=== PATIENT | male | born 1965 | race American Indian/Alaskan Native ===

== ENCOUNTER 2019-01-25 23:27 | Emergency (ER) | payer BC, OTHER ==
[2019-01-25 23:33] VITALS: BP 158/113
[2019-01-26] MEDS ORDERED: BSS OU ONE (01:11)
[2019-01-26] MEDS ORDERED: FUL-GLO OP ONE (01:11)
[2019-01-26] MEDS ORDERED: TETRACAINE 0.5% OU ONE (01:11)
--- NOTE | 2019-01-26 01:19 | Emergency Department Report ---
ED Eye Problem HPI - General Chief complaint: Eye Problems Stated complaint: GOT CHEMICAL IN RIGHT EYE Time Seen by Provider: 01/26/19 01:10 Source: patient Mode of arrival: Ambulatory Limitations: No Limitations - History of Present Illness Initial comments: 53-year-old -[place] male presents to the emergency room complaining of right thigh pain for 1-1/2 hours prior to arrival. Patient reports that he got Noxzema to his right eye. Patient states that his vision was blurred. Patient does report he flushed his eye out while in the shower. chief complaint: eye pain Onset/Timin -: hour(s) Location: right eye Place: home Eye Symptoms: burning, pain, foreign body sensation, blurry vision Severity scale (0 -10): 3 If Pain, Quality: burning Treatments Prior to Arrival: irrigated eye - Related Data Previous Rx's Medication Instructions Recorded Last Taken Type Lisinopril/Hydrochlorothiazide 1 tab PO QDAY #90 tablet 01/02/14 Unknown Rx [Zestoretic 10-12.5 mg] Cyclobenzaprine [Flexeril] 10 mg PO TID PRN #30 tablet 07/08/15 Unknown Rx HYDROcodone/APAP 5-325 [[place] 1 each PO Q6HR PRN #20 tablet 07/08/15 Unknown Rx 5/325] Ibuprofen [Motrin] 600 mg PO Q8H PRN #40 tablet 07/08/15 Unknown Rx Erythromycin [Erythromycin Ophth 1 applic OP QID #1 tube 01/26/19 Unknown Rx Oint] Ibuprofen [Motrin 800 MG tab] 800 mg PO Q8HR PRN #30 tablet 01/26/19 Unknown Rx Allergies Allergy/AdvReac Type Severity Reaction Status Date / Time No Known Allergies Allergy Verified 01/02/14 21:41 ED Review of Systems ROS: Stated complaint: GOT CHEMICAL IN RIGHT EYE Other details as noted in HPI Comment: All other systems reviewed and negative Eyes: eye pain ED Past Medical Hx - Past Medical History Previous Medical History?: Yes Hx Hypertension: Yes Hx Asthma: Yes - Surgical History Past Surgical History?: No - Social History Smoking Status: Never Smoker Substance Use Type: None - Medications Home Medications: Home Medications Medication Instructions Recorded Confirmed Last Taken Type Lisinopril/Hydrochlorothiazide 1 tab PO QDAY #90 tablet 01/02/14 Unknown Rx [Zestoretic 10-12.5 mg] Cyclobenzaprine [Flexeril] 10 mg PO TID PRN #30 tablet 07/08/15 Unknown Rx HYDROcodone/APAP 5-325 [[place] 1 each PO Q6HR PRN #20 tablet 07/08/15 Unknown Rx 5/325] Ibuprofen [Motrin] 600 mg PO Q8H PRN #40 tablet 07/08/15 Unknown Rx Erythromycin [Erythromycin Ophth 1 applic OP QID #1 tube 01/26/19 Unknown Rx Oint] Ibuprofen [Motrin 800 MG tab] 800 mg PO Q8HR PRN #30 tablet 01/26/19 Unknown Rx ED Physical Exam - General Limitations: No Limitations General appearance: alert, in no apparent distress - Head Head exam: Present: atraumatic, normocephalic - Eye Eye exam: Present: PERRL, other. Absent: periorbital swelling, periorbital tenderness - Expanded Eye Exam Expanded Pupils: Regular, Round: Bilateral Sclera/Conjunctival: Injection: Right - ENT ENT exam: Present: mucous membranes moist - Neurological Exam Neurological exam: Present: alert, oriented X3, normal gait - Psychiatric Psychiatric exam: Present: normal affect, normal mood - Skin Skin exam: Present: warm, dry, intact, normal color. Absent: rash ED Course Vital Signs 01/25/19 01/25/19 23:31 23:34 Temperature 98.5 F Pulse Rate 93 H Respiratory 18 Rate Blood Pressure 158/113 O2 Sat by Pulse 92 96 Oximetry ED Medical Decision Making - Medical Decision Making 53-year-old -[place] male presents to the emergency room complaining of right thigh pain for 1-1/2 hours prior to arrival. Patient reports that he got Noxzema to his right eye. Patient states that his vision was blurred. Patient does report he flushed his eye out while in the shower. Critical care attestation.: If time is entered above; I have spent that time in minutes in the direct care of this critically ill patient, excluding procedure time. ED Disposition Clinical Impression: Cornea abrasion Qualifiers: Encounter type: initial encounter Laterality: right Qualified Code(s): S05.01XA - Injury of conjunctiva and corneal abrasion without foreign body, right eye, initial encounter Disposition: TO HOME OR SELFCARE Is pt being admited?: No Does the pt Need Aspirin: No Condition: Stable Instructions: Corneal Abrasion (ED) Additional Instructions: Please use eye medication/antibiotics as prescribed. Take pain medication as needed. Is very important for you to do a 24-hour follow-up with an glycerine plant operator I have listed one below named Dr. Coe. Prescriptions: Erythromycin [Erythromycin Ophth Oint] 1 applic OP QID #1 tube Ibuprofen [Motrin 800 MG tab] 800 mg PO Q8HR PRN #30 tablet PRN Reason: Pain , Severe (7-10) Referrals: ALYSSA COE MD [Staff Physician] - 3-5 Days CRIO JONES JR, MD [Staff Physician] - 3-5 Days Forms: Work/School Release Form(ED), Accompanied Note
== END 2019-01-26 02:03 | disposition home or self-care (01) ==
LOC: ED 23:27
DX: S05.01XA Injury of conjunctiva and corneal abrasion without foreign body, right eye, initial encounter (principal); M79.651 Pain in right thigh; I10 Essential (primary) hypertension; J45.909 Unspecified asthma, uncomplicated; Z79.1 Long term (current) use of non-steroidal anti-inflammatories (NSAID); Z79.899 Other long term (current) drug therapy; X12.XXXA Contact with other hot fluids, initial encounter; Y93.89 Activity, other specified; Y92.098 Other place in other non-institutional residence as the place of occurrence of the external cause; Y99.8 Other external cause status
CPT/HCPCS: 99282